=== PATIENT | male | born 1990 | race Caucasian/White ===

== ENCOUNTER → 2017-03-26 | Outpatient (CLI) | payer OTHER | LOC: FIMAGING 13:38 | PROVIDERS: ATTEND Orthopaedic Surgery | DX: M24.10 Other articular cartilage disorders, unspecified site (principal); M23.42 Loose body in knee, left knee ==

== ENCOUNTER 2017-04-23 13:04 | Day surgery (SDC) | payer OTHER ==
--- NOTE | 2017-04-23 12:09 | PDGENHP ---
History & Physical Chief Complaint: L knee pain, osteochondral lesion History of Present Illness: Clyde is here for L knee evaluation. wants to discuss surgical intervention. L knee is bothersome. Work related traumtic incident that may have exacerbated his MFC lesion. Referred to L knee CT from [facility] on 03/26/17: 16cm x 16 cm ostechondral defect size. per radiologist report: Osteochondral lesion in lateral central WB portion of medial femoral condyle with a displaced osteochondral fragment and multiple loose bodies. Mild suprapatellar joint effusion. 16x16 cm osteochondral defect, L knee. loose bodies, L knee. Work related Impact likely aggravated the chondral defect. The best treatment option considering Clyde's youth, work requirements, and activity levels would be a L knee scope with loose body excision, debridement, and hyaline cartilage osteochondral allograft transfer. Detailed this procedure. Can have osteoarticular allograft vs. autograft, recommend allograft. Outlined risks, benefits, alternatives, complications, and rehabilitation. Crutches for 6 weeks. Clyde expresses interest in proceeding with surgery. Paperwork for workmens comp was filled out today. Clyde will make the proper arrangements. FU post-operatively. L knee scope, LB removal, debridement allograft OATS type procedure
--- NOTE | 2017-04-23 12:09 | PDHPUP ---
History & Physical Update H&P update statement: This history and physical update is based on an assessment of the patient which was completed after admission or registration (within 24 hours), but prior to the surgery/procedure. H&P update: no change in patient's condition since H&P completed
[~2017-04-23 13:04] MED LIST: ceFAZolin 2 GM/DEXTROSE 100 ML IV ONE
[2017-04-23] MEDS ORDERED: LIDOCAINE 1% 2 ML INJ ID PRN (13:35)
[2017-04-23] MEDS ORDERED: LR 1,000 ML IV ONE (13:35)
[2017-04-23] MEDS ORDERED: LIDOCAINE 1% 2 ML INJ ONE (13:41)
[2017-04-23] MEDS ORDERED: ROPIVACAINE HCL 20 MG/10 ML INJ EP ONE ×2 (14:01→16:28)
[2017-04-23] MEDS ORDERED: PROPOFOL 200 MG/20 ML VIAL ONE ×3 (14:06→15:45)
[2017-04-23] MEDS ORDERED: fentaNYL 100 MCG/2 ML INJ ONE ×2 (14:06→15:45)
[2017-04-23 14:18] VITALS: PULSE 61
[2017-04-23] MEDS ORDERED: HYDROmorphONE/DILAUDID 2 MG/ML INJ ONE (15:01)
--- NOTE | 2017-04-23 15:24 | PDANEPAE ---
ANE History of Present Illness left knee ocd lesion, arthritis ANE Past Medical History - Cardiovascular History Hx Hypertension: No Hx Arrhythmias: No Hx Chest Pain: No Hx Coronary Artery / Peripheral Vascular Disease: No Hx CHF / Valvular Disease: No Hx Palpitations: No - Pulmonary History Hx COPD: No Hx Asthma/Reactive Airway Disease: No Hx Recent Upper Respiratory Infection: No Hx Oxygen in Use at Home: No Hx Sleep Apnea: No Sleep Apnea Screening Result - Last Documented: Negative - Neurologic History Hx Cerebrovascular Accident: No Hx Seizures: No Hx Dementia: No - Endocrine History Hx Diabetes: No - Renal History Hx Renal Disorders: No - Liver History Hx Hepatic Disorders: No - Neurological & Psychiatric Hx Hx Neurological and Psychiatric Disorders: No - Cancer History Hx Cancer: No - Congenital Disorder History Hx Congenital Disorders: No - GI History Hx Gastrointestinal Disorders: No - Other Health History Other Health History: NEG - Chronic Pain History Chronic Pain: Yes (L KNEE) - Surgical History Prior Surgeries: L KNEE OATS. WISDOM TEETH ANE Review of Systems - Exercise capacity METS (RN): 5 METS ANE Patient History - Allergies Allergies/Adverse Reactions: No Known Allergies Allergy (Unverified 04/20/17 15:58) - Home Medications Home Medications: Herbals/Supplements -Info Only 04/20/17 [Last Taken Unknown] - NPO status NPO Since - Liquids (Date): 04/23/17 NPO Since - Liquids (Time): 04:45 NPO Since - Solids (Date): 04/22/17 - Smoking Hx Smoking Status: Never smoked - Family Anes Hx Family Hx Anesthesia Complications: NEG ANE Labs/Vital Signs - Vital Signs Blood Pressure: 130/72 Heart Rate: 61 Respiratory Rate: 16 O2 Sat (%): 97 Height: 172.72 cm Weight: 92.079 kg ANE Physical Exam - Airway Neck exam: FROM Mallampati Score: Class 2 Mouth exam: normal dental/mouth exam - Pulmonary Pulmonary: no respiratory distress - Cardiovascular Cardiovascular: regular rate and rhythym - ASA Status ASA Status: I ANE Anesthesia Plan Anesthesia Plan: GA w LMA Regional Anesthesia: single shot NB, adductor canal FNB
[2017-04-23] MEDS ORDERED: PROMETHAZINE HCL 25 MG/ML INJ IVP PRN (16:32)
[2017-04-23] MEDS ORDERED: ONDANSETRON 4 MG/2 ML VIAL IVP PRN (16:32)
[2017-04-23] MEDS ORDERED: fentaNYL 100 MCG/2 ML INJ IVP PRN (16:32)
[2017-04-23] MEDS ORDERED: NALOXONE HCL 0.4 MG/ML INJ IVP PRN (16:32)
[2017-04-23] MEDS ORDERED: HYDROmorphONE/DILAUDID 1 MG/ML SYR IVP PRN (16:32)
--- NOTE | 2017-04-23 16:56 | POSTANESTH ---
Post Anesthetic Evaluation Cardiovascular Status: Normal, Stable Respiratory Status: Normal, Stable Level of Consciousness/Mental Status: Can Participate in Eval Pain Control: Adequate, Prn Tx Ordered Nausea/Vomiting Control: Adequate, Prn Tx Ordered Complications Possibly Related to Anesthesia: None Noted
[2017-04-23] MEDS ORDERED: HYDROmorphONE/DILAUDID 1 MG/ML SYR ONE (17:19)
[2017-04-23 17:46] VITALS: BP 137/81; RESP 17; TEMP 98.6; O2SAT 100
--- NOTE | 2017-04-23 20:01 | GOP ---
[f rep st] OPERATIVE REPORT DATE OF OPERATION: 04/23/2017 SURGEON: En Long MD YOUTH CARE WORKER: Marilou Montero PA-C, medically required for positioning of the leg during open osteochondr al allograft transfer. front office assistant was required for careful retraction of vital neurovascula r structures. PREOPERATIVE DIAGNOSIS: 1. Osteochondritis dissecans lesion, left knee. 2. History of attempted osteochondritis dissecans repair as a youth. 3. Loose body. 4. Unstable osteochondritis dissecans lesion. 5. Synovitis. 6. Lateral meniscus tear. POSTOPERATIVE DIAGNOSIS: 1. Osteochondritis dissecans lesion, left knee. 2. History of attempted osteochondritis dissecans repair as a youth. 3. Loose body. 4. Unstable osteochondritis dissecans lesion. 5. Synovitis. 6. Lateral meniscus tear. PROCEDURE PERFORMED: 1. Arthroscopic loose body removal, greater than 7 mm loose body. 2. Arthroscopic extensive synovectomy, debridement and chondroplasty of medial femoral condyle. 3. Arthroscopic partial lateral meniscectomy. 4. Open osteochondral allograft transfer of a 22.5 mm cylindrical plug, 9 mm depth, medial femoral condyle, weightbearing portion, slightly anterior. FINDINGS: ESTIMATED BLOOD LOSS: Less than 100 cc. INDICATIONS: The patient is a 27-year-old male, who works on a [employer]. Had a work-related inj ury to his left knee. He had a prior history of OCD lesion that was attempted repair as a kid. Cli nical, radiographic, and MRI confirmed unstable OCD lesion measuring approximately 20 x 20 mm with l oose bodies. The patient elected for operative intervention for unstable OCD lesion and loose sabina s in his left knee. Risks, benefits, expectations, and alternatives were discussed regarding types of cartilage episcopal techniques, and the patient would like to proceed with allograft reconstruc tion. DESCRIPTION OF PROCEDURE: Patient identified in the preoperative holding area. Consent, laterality , and preoperative antibiotics were confirmed, delivered. All questions were answered. The left si de was identified. He had full extension to 150 flexion. No effusion of the left knee. Patient brought into the operating room. Anesthesia with adductor canal block and general anesthesi a. We set up his left knee like an open total knee type of procedure. We had a foot bump, a hip bu mp, and a lateral post to hold the knee in hyperflexion. The left lower extremity had a thigh tourniquet placed. The left lower extremity was prepped and dr aped in the usual sterile fashion. We did not use the tourniquet for the arthroscopic portion. Roger hilton 2-portal technique. He did have about a 5 cm medially based incision that was for the prior O CD lesion repair. We were going to extend this proximally and distally in a curvilinear fashion ins tead of a midline total knee incision fashion. Arthroscopic portion revealed a grade 0 patella, a grade 1 trochlea, the medial femoral condyle with unstable cartilage borders. There was a loose body in the medial gutter that was retrieved with a grasper. It measured about 7 x 7 mm. The cartilage borders were unstable on the medial femoral con dyle. The medial meniscus looked excellent. The medial tibial plateau looked excellent. ACL and P CL were intact. The lateral compartment cartilage was grade 0. The lateral meniscus had some inner third fraying, which was touched up with an oscillating shaver. Extensive synovectomy was then per formed of the synovitis to open up space for visualization and to assess if there were any more loos e bodies. The Gillquist views were identified. No loose bodies posteriorly. Attention was then turned to the open portion. We did Esmarch exsanguination, 275 mmHg. Total tour niquet time was 61 minutes. We did a medial parapatellar incision, took down full-thickness flaps o f skin. Peritenon. Cut through the capsule in a curvilinear fashion. We did a subvastus approach. Placed Z retractors in the quadriceps on the medial and lateral sides and had excellent exposure w ith the knee in about 90 degrees of flexion. We did have to adjust the foot rest. We excised the f at pad. Debrided the lesion. Measured 20 mm for the recipient but did not cover the entire lesion and thus we chose a 22.5 mm construct. We went ahead and scored the cartilage. Reamed down to abou t 9-10 mm, flush in depth. We measured the hare, and it measured about 9 mm on the north, east, so [facility], and west portions of the wall. We washed the wound out with 500 cc of warm normal saline and p acked it with wet laps. Attention was then turned to the back table. We used the graft table. We eyeballed where the lesion was. At 90 degrees flexion, it was above the equatorial plane of the med ial femoral condyle at the weightbearing surface. Then, made gray on the femoral condyle. We did use the cutting jig. We core reamed this down to a depth of about 20 mm and used an oscillating saw to cut the remainder and made it flush. Then, we used the lobster claw. We measured about 9 mm al l around from the cartilaginous depth and used an oscillating saw to finish this off. We beveled th e edges a bit. We then measured again and found it to be 9 mm depth on the recipient and 9 mm depth on the donor. We washed out the wound, washed the graft with warm normal saline, and then placed t he graft. It looked excellent. There was about a 0.5 mm countersunk on the most medial side, but t he rest of it was flush, with a nice press fit. We copiously washed out the joint with 500 cc of wa rm normal saline, got all the loose debris out. Closed the medial capsule with a running 0 PDS with multiple interrupted PDS throughout at the stress points. Ran through the vastus fascia with a 2-0 PDS. Subcutaneously with 3-0 Monocryl and then braulio for skin. We did 30 cc of 0.2% ropivacaine , around the incision 20 cc and then 10 cc into the joint. A sterile dressing was applied with Xero form, 4x4s, ABD, NIDIA wrap. COMPLICATIONS: None. DISPOSITION: Extubated to the PACU in stable condition. TOTAL TOURNIQUET TIME: 61 minutes. /[id number]/MODL
== END 2017-04-23 18:22 | disposition home or self-care (01) ==
LOC: FSGY 13:04
PROVIDERS: ATTEND Orthopaedic Surgery
PROC: 0SBD4ZZ Excision of Left Knee Joint, Percutaneous Endoscopic Approach (ICD-10-PCS; principal; 2017-04-23 14:30)
PROC: [UNRECOGNIZED PROCEDURE] (principal; 2017-04-23 14:30)
PROC: 0MQP4ZZ Repair Left Knee Bursa and Ligament, Percutaneous Endoscopic Approach (ICD-10-PCS; principal; 2017-04-23 14:30)
DX: M93.262 Osteochondritis dissecans, left knee (principal); M25.462 Effusion, left knee; M65.9 Synovitis and tenosynovitis, unspecified
CPT/HCPCS: C1762; J0690; J1170; J2704; J2795; J3010